=== PATIENT | male | born 1985 | race Two or more races ===

== ENCOUNTER 2023-05-06 23:44 | Emergency (ER) | payer BC, OTHER ==
[~2023-05-06] VITALS: Ht 172.7 cm; Wt 81.6 kg
--- NOTE | 2023-05-06 23:50 | NUR ---
Dr. Calvillo evaluated patient at bedside. MSE in progress.
[2023-05-06] MEDS ORDERED: ONDANSETRON 4 MG/2 ML VIAL ONE (23:57)
[2023-05-07] MEDS ORDERED: ONDANSETRON 4 MG/2 ML VIAL IV ONE
[2023-05-07] MEDS ORDERED: IV D5/ 0.9% NACL 1,000 ML IV ONE
[2023-05-07 00:06] LABS: HEMATOCRIT 45.8 % (36.7-47.1); MEAN CORPUSCULAR HEMOGLOBIN 29.9 uug (23.8-33.4); MEAN CORPUSCULAR VOLUME 88.2 fL (73.0-96.2); PLATELET COUNT (AUTO) 323 K/uL (152-348)
[2023-05-07 00:17] LABS: CREATININE 0.9 mg/dL (0.6-1.3)
--- NOTE | 2023-05-07 00:21 | NUR ---
[employer] at bedside.
[2023-05-07 00:23] LABS: BILIRUBIN,DIRECT 0.1 mg/dL (0.0-0.2); BILIRUBIN,TOTAL 0.2 mg/dL (0.2-1.0); TOTAL PROTEIN, SERUM 7.6 g/dL (6.4-8.2)
[2023-05-07 00:36] LABS: POTASSIUM 3.6 mmol/L (3.5-5.1)
--- NOTE | 2023-05-07 00:40 | NUR ---
Patient resting comfortably in bed, eyes closed. No acute distress noted.
[2023-05-07 01:07] LABS: LIPASE 112 U/L (73-393)
--- NOTE | 2023-05-07 02:36 | NUR ---
Patient Aox4, ambulatory. Patient ambulated to the bathroom indepedently. Activity tolerated well. No signs of distress noted.
--- NOTE | 2023-05-07 04:22 | NUR ---
Patient discharged to home in stable condition. Written and verbal after care instructions given. Patient verbalizes understanding of instructions. Stressed follow up or return to ER for worsening s/s. Patient given taxi voucher.
[2023-05-07 04:23] VITALS: BP 110/75
== END 2023-05-07 04:24 | disposition home or self-care (01) ==
LOC: ER 23:44
DX: F10.129 Alcohol abuse with intoxication, unspecified (principal); Y90.7 Blood alcohol level of 200-239 mg/100 ml
CPT/HCPCS: 80076; 80048; 82140; 83690; 85025; 36415; 99283; 80320; 96361; 96374; J2405; J7042; J7040; A4663; G0480